=== PATIENT | female | born 1965 | race Caucasian/White ===

== ENCOUNTER 2019-04-13 16:32 | Emergency (ER) | payer OTHER ==
[2019-04-13] MEDS ORDERED: fentaNYL CITRATE/PF 100 MCG/2 ML INJ. IVP ONE (17:23)
[2019-04-13] MEDS ORDERED: KETOROLAC TROMETHAMINE 60 MG/2 ML VIAL IM ONE (17:23)
[2019-04-13] MEDS ORDERED: KETOROLAC TROMETHAMINE 30 MG/1ML VIAL IV ONE (17:25)
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
--- NOTE | 2019-04-13 18:05 | Diagnostic Imaging Report ---
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 [address] Report Submission Date: Apr 13, 2019 5:27:02 PM CDT Patient Study Name: MUNIR DESAI Date: Apr 13, 2019 4:53:25 PM CDT Modality Type: DX Gender: F Description: FOOT 3 VIEWS OR MORE : 65 Institution: [facility] Physician: REYNALDO LONGO) - ER Right foot, three views History: Crush injury, pain. Findings: Linear calcific density is seen dorsal aspect of the navicular lateral projection, may represent small avulsion fracture however no adjacent soft tissue swelling is present. Otherwise the osseous structures are normal. The joint spacing and alignment are normal. No soft tissue abnormality. Impression: 1. Small linear osseous density is seen in the dorsal aspect of the navicula without soft tissue swelling. This is of uncertain clinical significance correlate with site of point tenderness. 2. Remaining osseous structures are normal. Electronically signed on Apr 13, 2019 5:27:02 PM CDT by: Kan BARLOW
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
[2019-04-13 19:00] VITALS: BP 120/60
== END 2019-04-13 18:57 | disposition home or self-care (01) ==
LOC: ED 16:32
DX: S90.31XA Contusion of right foot, initial encounter (principal); W23.1XXA Caught, crushed, jammed, or pinched between stationary objects, initial encounter; Y93.9 Activity, unspecified; Y92.410 Unspecified street and highway as the place of occurrence of the external cause
CPT/HCPCS: 73590; 73610; 73630; 96372; 96374; 96375; 99283; 99284; J1885; J3010; S1016